=== PATIENT | male | born 2000 | race Caucasian/White ===

== ENCOUNTER 2018-08-08 18:36 | Emergency (ER) | payer BC ==
[~2018-08-08] VITALS: Wt 68.2 kg
[2018-08-08] MEDS ORDERED: PERCOCET 325 MG1 TA2 PO (21:05)
[2018-08-08 21:35] VITALS: BP 124/74
== END 2018-08-08 21:35 | disposition home or self-care (01) ==
LOC: ED 18:36
DX: M25.462 Effusion, left knee (principal); W23.1XXA Caught, crushed, jammed, or pinched between stationary objects, initial encounter; Y92.828 Other wilderness area as the place of occurrence of the external cause
CPT/HCPCS: J1885; J2270; L1830